=== PATIENT | male | born 1985 | race Caucasian/White ===

== ENCOUNTER 2020-10-25 21:50 | Emergency (ER) | payer MEDICAID ==
[~2020-10-25] VITALS: Ht 177.8 cm; Wt 75.5 kg
[2020-10-26 01:07] VITALS: BP 125/85
== END 2020-10-26 01:08 | disposition home or self-care (01) ==
LOC: ER 21:51
DX: S22.41XA Multiple fractures of ribs, right side, initial encounter for closed fracture (principal); X50.1XXA Overexertion from prolonged static or awkward postures, initial encounter; Y93.75 Activity, martial arts; Y92.89 Other specified places as the place of occurrence of the external cause; Y99.8 Other external cause status
CPT/HCPCS: 71045; 99283

== ENCOUNTER 2020-12-07 20:57 | Emergency (ER) | payer MEDICAID ==
[~2020-12-07] VITALS: Ht 177.8 cm; Wt 59.8 kg
[2020-12-07 21:04] VITALS: BP 109/75
[2020-12-07] MEDS ORDERED: ketorolac tromethamine 15mg/ml inj. IM ONE (22:35)
== END 2020-12-07 23:30 | disposition home or self-care (01) ==
LOC: ER 20:58
DX: R07.89 Other chest pain (principal); R06.02 Shortness of breath; W19.XXXD Unspecified fall, subsequent encounter
CPT/HCPCS: 71100; 99283

== ENCOUNTER 2021-02-07 11:21 | Emergency (ER) | payer MEDICAID ==
[~2021-02-07] VITALS: Ht 177.8 cm; Wt 73.1 kg
[2021-02-07 11:39] VITALS: BP 129/85
--- NOTE | 2021-02-07 12:15 | NUR ---
PT LEFT LOBBY, TELLING ADMITTING THAT HE HAS BEEN WAITING AN 90 MIN AND OTHERS HAVE GONE IN BEFORE HIM. PT LEFT WITHOUT GIVING THE OPPORTUNITY FOR A PROVIDER TO BE NOTIFIED.
== END 2021-02-07 13:10 | disposition left against medical advice (07) ==
LOC: ER 11:21
DX: R07.81 Pleurodynia (principal); Z53.21 Procedure and treatment not carried out due to patient leaving prior to being seen by health care provider

== ENCOUNTER 2021-02-09 22:03 | Emergency (ER) | payer MEDICAID ==
[~2021-02-09] VITALS: Ht 180.3 cm; Wt 77.2 kg
[2021-02-09 22:08] VITALS: BP 140/92
--- NOTE | 2021-02-10 00:10 | NUR ---
LEFT W/OUT SIGNING
== END 2021-02-10 00:37 | disposition home or self-care (01) ==
LOC: ER 22:03
DX: R07.81 Pleurodynia (principal)
CPT/HCPCS: 71101; 99283

== ENCOUNTER 2022-12-15 18:58 | Emergency (ER) | payer MEDICAID ==
[~2022-12-15] VITALS: Ht 177.8 cm; Wt 88.6 kg
[2022-12-15 19:31] LABS: BASOPHILS % (AUTO) 0.5 % (0-1); EOSINOPHILS # (AUTO) 0.2 X10'3 (0-0.9); EOSINOPHILS % (AUTO) 2.4 % (0-6); HEMOGLOBIN 13.4 g/dl (14.0-17.9); LYMPHOCYTES # (AUTO) 2.7 X10'3 (1.1-4.8); LYMPHOCYTES % (AUTO) 34.3 % (21-51); MEAN CORPUSCULAR HGB CONC 33.5 g/dL (33.0-36.5); MEAN CORPUSCULAR VOLUME 86.6 FL (78-98); MEAN PLATELET VOLUME 7.6 FL (7.4-10.4); MONOCYTES # (AUTO) 0.6 X10'3 (0-0.9); MONOCYTES % (AUTO) 7.5 % (2-12); NEUTROPHILS # (AUTO) 4.3 X10'3 (1.8-7.7); NEUTROPHILS % (AUTO) 55.3 % (42-75); PLATELET COUNT 201 X10'3 (140-440); RED BLOOD COUNT 4.62 X10'6 (4.70-6.10); RED CELL DISTRIBUTION WIDTH 12.4 % (11.5-14.5); WHITE BLOOD COUNT 7.8 X10'3 (4.5-11.0)
[2022-12-15 19:50] LABS: ALANINE AMINOTRANSFERASE 30 U/L (12-78); ALBUMIN 3.4 G/DL (3.4-5.0); ALBUMIN/GLOBULIN RATIO 1.4 (1.1-1.5); ALKALINE PHOSPHATASE 69 IU/L (46-116); ANION GAP 10 (8-16); ASPARTATE AMINO TRANSFERASE 31 U/L (10-37); BILIRUBIN,TOTAL 0.1 MG/DL (0.1-1.0); BLOOD UREA NITROGEN 13 MG/DL (7-18); CALCIUM 8.3 MG/DL (8.5-10.1); CHLORIDE 105 MMOL/L (99-107); CREATININE 1.18 MG/DL (0.60-1.10); GLUCOSE 129 MG/DL (70-104); POTASSIUM 3.5 MMOL/L (3.5-5.1); SODIUM 141 MMOL/L (135-145); TOTAL CARBON DIOXIDE 26.5 MMOL/L (24-32); TOTAL PROTEIN 5.8 G/DL (6.4-8.2); eGFR 70 ML/MIN
[2022-12-15] MEDS ORDERED: normal saline 1000ml 1,000 ML IV ONE ×2 (20:40)
[2022-12-15 21:21] VITALS: BP 116/78
--- NOTE | 2022-12-15 21:59 | NUR ---
iv dc'd pt being discharged dressing applied
== END 2022-12-15 22:01 | disposition home or self-care (01) ==
LOC: ER 18:59
DX: R55 Syncope and collapse (principal)
CPT/HCPCS: 36415; 71045; 80053; 83880; 84484; 85025; 93005; 96360; 99285; J7030

== ENCOUNTER 2023-07-15 18:09 | Emergency (ER) | payer MEDICAID ==
[~2023-07-15] VITALS: Ht 177.8 cm; Wt 79.5 kg
[2023-07-15] MEDS ORDERED: NAPR-56 PO (20:42)
[2023-07-15 21:02] VITALS: BP 127/78; PULSE 68; RESP 16; TEMP 98.2; O2SAT 97
== END 2023-07-15 21:04 | disposition home or self-care (01) ==
LOC: ER 18:10
DX: S60.112A Contusion of left thumb with damage to nail, initial encounter (principal); Z98.890 Other specified postprocedural states; Z79.899 Other long term (current) drug therapy; W23.0XXA Caught, crushed, jammed, or pinched between moving objects, initial encounter; Y93.89 Activity, other specified; Y92.89 Other specified places as the place of occurrence of the external cause; Y99.8 Other external cause status
CPT/HCPCS: 11740; 73140; 99284